=== PATIENT | female | born 1980 | race Caucasian/White ===

== ENCOUNTER 2018-08-19 19:33 | Inpatient (IN) | payer OTHER ==
[2018-08-19] MEDS: ACETAMINOPHEN 500 MG TAB PO (19:46)
[2018-08-19 20:05] LABS: ADD MAN DIFF? NO
[2018-08-19 20:12] LABS: ADD UMIC YES; UR ASCORBIC ACID NEGATIVE (NEGATIVE); UR BACTERIA FEW /HPF (NONE SEEN); UR BILIRUBIN (Dip) NEGATIVE (NEGATIVE); UR BLOOD (Dip) 3+ mg/dL (NEGATIVE); UR CLARITY CLOUDY (CLEAR); UR COLOR YELLOW (YELLOW); UR GLUCOSE (Dip) NEGATIVE (NEGATIVE); UR KETONES (Dip) NEGATIVE (NEGATIVE); UR LEUKOCYTE ESTERASE (Dip) TRACE Leu/ul (NEGATIVE); UR MUCUS MANY /HPF (NONE SEEN); UR NITRITE (Dip) POSITIVE (NEGATIVE); UR NONSQUAMOUS EPITHELIAL CELL 2 /HPF (NONE SEEN); UR RBC > 182 /HPF (0-5); UR SQUAMOUS EPITHELIAL CELL FEW /HPF (FEW); UR TOTAL PROTEIN (Dip) 2+ mg/dl (NEGATIVE); UR UROBILINOGEN (Dip) 1+ mg/dL (NEGATIVE); UR WBC 20 /HPF (0-5)
[2018-08-19] MEDS: KETOROLAC 15 MG INJ IV (20:12)
[2018-08-19 20:13] LABS: WHITE BLOOD COUNT 19.6 10^3/ul (4.8-10.8)
[2018-08-19 20:13] LABS: ABNORMAL IP MESSAGE 1; BASOPHIL # 0.1 10^3/ul (0.0-0.1); BASOPHILS % 0.5 % (0.0-2.0); EOSINOPHILS # 0.1 10^3/ul (0.0-0.5); EOSINOPHILS % 0.7 % (0.0-7.0); HEMATOCRIT 42.2 % (37.0-47.0); HEMOGLOBIN 12.2 g/dl (12.0-16.0); LYMPHOCYTES # 1.1 10^3/ul (0.8-2.9); LYMPHOCYTES % 5.5 % (15.0-51.0); MEAN CORPUSCULAR HEMOGLOBIN 18.2 pg (29.0-33.0); MEAN CORPUSCULAR HGB CONC 28.9 g/dl (32.0-37.0); MEAN CORPUSCULAR VOLUME 63.1 fl (82.0-101.0); MEAN PLATELET VOLUME 8.9 fl (7.4-10.4); MONOCYTE # 1.1 10^3/ul (0.3-0.9); MONOCYTES % 5.5 % (0.0-11.0); NEUTROPHILS % 86.9 % (39.0-77.0); PLATELET COUNT 327 10^3/UL (140-415); RED BLOOD COUNT 6.69 10^6/ul (4.20-5.40); RED CELL DISTRIBUTION WIDTH 21.1 % (11.5-14.5)
[2018-08-19] MEDS: ONDANSETRON 4 MG INJ IV (20:13)
[2018-08-19] MEDS: SODIUM CHLORIDE 0.9% 1L BAG IV* (20:13)
[2018-08-19] MEDS: HYDROmorphONE 2 MG/ML SYG IV (20:13)
[2018-08-19] MEDS: PIPER-TAZO 3.375 GM IV (PMX) 100 ML IVPB (20:13)
[2018-08-19 20:19] LABS: POSITIVE DIFF @See below
[2018-08-19 20:21] LABS: INR 0.95; PROTIME 12.8 Sec (11.9-14.9)
[2018-08-19 20:22] LABS: PARTIAL THROMBOPLASTIN TIME 29.1 Sec (23.0-35.0)
[2018-08-19 20:26] LABS: ALANINE AMINOTRANSFERASE 16 IU/L (13-69); ALBUMIN 4.5 g/dl (3.3-4.9); ALBUMIN/GLOBULIN RATIO 1.18; ALKALINE PHOSPHATASE 131 IU/L (42-121); ANION GAP 13 (5-13); ASPARTATE AMINO TRANSFERASE 20 IU/L (15-46); BILIRUBIN,INDIRECT 0.6 mg/dl (0-1.1); BILIRUBIN,TOTAL 0.6 mg/dl (0.2-1.3); BLOOD UREA NITROGEN 11 mg/dl (7-20); CALCIUM 9.7 mg/dl (8.4-10.2); CARBON DIOXIDE 27 mmol/L (21-31); CHLORIDE 98 mmol/L (97-110); CREATININE 0.84 mg/dl (0.44-1.00); Estimated GFR > 60 mL/min (>60); GLUCOSE 120 mg/dl (70-220); POTASSIUM 4.1 mmol/L (3.5-5.1); SODIUM 138 mmol/L (135-144); TOTAL PROTEIN 8.3 g/dl (6.1-8.1)
[2018-08-19 20:27] LABS: LACTIC ACID 1.6 mmol/L (0.5-2.0)
[2018-08-19 20:37] LABS: TROPONIN-I < 0.012 ng/ml (0.000-0.120)
[2018-08-19] MEDS ORDERED: ONDANSETRON 4 MG INJ IV (23:30)
[2018-08-19] MEDS: HYDROmorphONE 1 MG/ML SYG IV (23:32)
[2018-08-19] MEDS: CLINDAMYCIN 900 MG/D5W (PMX) 50 ML IVPB (23:33)
[2018-08-20] MEDS: SOD CHLORIDE 0.9% IVPB (00:04)
[2018-08-20] MEDS: GENTAMICIN IVPB (00:04)
[2018-08-20] MEDS: AMPICILLIN 2 GM/NS (PMX) 100 ML IVPB (01:21)
[2018-08-20 01:22] LABS: LACTIC ACID 0.6 mmol/L (0.5-2.0)
[2018-08-20] MEDS: DIPHENHYDRAMINE 50 MG INJ IV (02:55)
[2018-08-20] MEDS: ACETAMINOPHEN 325 MG TAB PO (02:56)
[2018-08-20] MEDS ORDERED: morphine 2 MG INJ IV (03:00)
[2018-08-20 05:11] LABS: ADD MAN DIFF? NO
[2018-08-20 05:31] LABS: WHITE BLOOD COUNT 10.8 10^3/ul (4.8-10.8)
[2018-08-20 05:31] LABS: ABNORMAL IP MESSAGE 1; BASOPHILS % 0.4 % (0.0-2.0); EOSINOPHILS # 0.1 10^3/ul (0.0-0.5); EOSINOPHILS % 0.9 % (0.0-7.0); HEMATOCRIT 32.9 % (37.0-47.0); HEMOGLOBIN 9.7 g/dl (12.0-16.0); LYMPHOCYTES # 0.6 10^3/ul (0.8-2.9); LYMPHOCYTES % 5.6 % (15.0-51.0); MEAN CORPUSCULAR HEMOGLOBIN 18.4 pg (29.0-33.0); MEAN CORPUSCULAR HGB CONC 29.5 g/dl (32.0-37.0); MEAN CORPUSCULAR VOLUME 62.3 fl (82.0-101.0); MEAN PLATELET VOLUME 9.7 fl (7.4-10.4); MONOCYTE # 0.7 10^3/ul (0.3-0.9); MONOCYTES % 6.3 % (0.0-11.0); NEUTROPHIL # 9.3 10^3/ul (1.6-7.5); NEUTROPHILS % 86.3 % (39.0-77.0); PLATELET COUNT 255 10^3/UL (140-415); RED BLOOD COUNT 5.28 10^6/ul (4.20-5.40); RED CELL DISTRIBUTION WIDTH 19.7 % (11.5-14.5)
[2018-08-20 05:59] LABS: POSITIVE DIFF @See below
[2018-08-20] MEDS: CLINDAMYCIN 900 MG/D5W (PMX) 50 ML IVPB (06:00)
[2018-08-20 07:54] LABS: ANISOCYTOSIS 3+ (0-0); BAND NEUTROPHILS #M 1.1 10^3/ul (0.0-0.6); BAND NEUTROPHILS % (M) 11 % (0-4); BASOPHIL #M 0.1 10^3/ul (0.0-0.0); BASOPHILS % (M) 1 % (0-2); HYPOCHROMASIA 3+ (0-0); LYMPHOCYTES #M 0.6 10^3/ul (0.8-2.9); LYMPHOCYTES % (M) 6 % (15-51); MICROCYTOSIS 3+ (0-0); MONOCYTE #M 0.3 10^3/ul (0.3-0.9); MONOCYTES % (M) 3 % (0-11); OVALOCYTES 1+ (0-0); PLATELET ESTIMATE NORMAL; POIKILOCYTOSIS 2+ (0-0); POLYCHROMASIA 3+ (0-0); SEG NEUT #M 8.7 10^3/ul (1.6-7.5); SEGMENTED NEUTROPHILS (M) % 79 % (39-77)
[2018-08-20] MEDS ORDERED: GENTAMICIN 80 MG/NS (PMX) 50 ML IVPB (08:00)
[2018-08-20] MEDS ORDERED: AMPICILLIN/SULB 1.5GM/NS (PMX) 50 ML IVPB (12:00)
== END 2018-08-20 05:35 | disposition left against medical advice (07) | DRG 759 ==
LOC: MS1 23:23 → E/R 19:33
DX: N70.93 Salpingitis and oophoritis, unspecified (principal)
CPT/HCPCS: 36415; 71045; 74176; 76830; 76856; 80053; 81001; 81025; 83605; 84484; 84703; 85025; 85610; 85730; 87040; 87070; 87081; 87086; 87210; 87220; 87591; 93005; 96361; 96374; 96375; 99285-25

== ENCOUNTER 2018-08-20 23:31 | Inpatient (IN) | payer OTHER ==
[2018-08-21 00:08] LABS: ADD MAN DIFF? NO
[2018-08-21] MEDS: morphine 4 MG/ML VIAL IV ×3 (00:17→10:23)
[2018-08-21] MEDS: SODIUM CHLORIDE 0.9% 1L BAG IV* (00:17)
[2018-08-21] MEDS: ACETAMINOPHEN 325 MG TAB PO ×2 (00:17→07:26)
[2018-08-21] MEDS: ONDANSETRON 4 MG INJ IV ×2 (00:17→00:50)
[2018-08-21 00:20] LABS: ABNORMAL IP MESSAGE 1; BASOPHIL # 0.1 10^3/ul (0.0-0.1); BASOPHILS % 0.4 % (0.0-2.0); EOSINOPHILS # 0.2 10^3/ul (0.0-0.5); EOSINOPHILS % 1.4 % (0.0-7.0); HEMATOCRIT 35.2 % (37.0-47.0); HEMOGLOBIN 10.1 g/dl (12.0-16.0); LYMPHOCYTES # 1.2 10^3/ul (0.8-2.9); LYMPHOCYTES % 8.6 % (15.0-51.0); MEAN CORPUSCULAR HGB CONC 28.7 g/dl (32.0-37.0); MEAN CORPUSCULAR VOLUME 62.7 fl (82.0-101.0); MEAN PLATELET VOLUME 9.5 fl (7.4-10.4); MONOCYTE # 0.8 10^3/ul (0.3-0.9); MONOCYTES % 5.7 % (0.0-11.0); NEUTROPHIL # 11.8 10^3/ul (1.6-7.5); NEUTROPHILS % 83.2 % (39.0-77.0); PLATELET COUNT 298 10^3/UL (140-415); RED BLOOD COUNT 5.61 10^6/ul (4.20-5.40); RED CELL DISTRIBUTION WIDTH 20.5 % (11.5-14.5)
[2018-08-21 00:20] LABS: WHITE BLOOD COUNT 14.1 10^3/ul (4.8-10.8)
[2018-08-21] MEDS: GENTAMICIN 80 MG/NS (PMX) 50 ML IVPB (00:21)
[2018-08-21 00:29] LABS: LACTIC ACID 1.1 mmol/L (0.5-2.0)
[2018-08-21 00:31] LABS: ALANINE AMINOTRANSFERASE 28 IU/L (13-69); ALBUMIN 3.8 g/dl (3.3-4.9); ALBUMIN/GLOBULIN RATIO 1.15; ALKALINE PHOSPHATASE 129 IU/L (42-121); ANION GAP 14 (5-13); ASPARTATE AMINO TRANSFERASE 37 IU/L (15-46); BILIRUBIN,INDIRECT 0.3 mg/dl (0-1.1); BILIRUBIN,TOTAL 0.3 mg/dl (0.2-1.3); BLOOD UREA NITROGEN 9 mg/dl (7-20); CALCIUM 8.9 mg/dl (8.4-10.2); CARBON DIOXIDE 24 mmol/L (21-31); CHLORIDE 103 mmol/L (97-110); CREATININE 0.74 mg/dl (0.44-1.00); Estimated GFR > 60 mL/min (>60); GLUCOSE 103 mg/dl (70-220); POTASSIUM 3.9 mmol/L (3.5-5.1); SODIUM 141 mmol/L (135-144); TOTAL PROTEIN 7.1 g/dl (6.1-8.1)
[2018-08-21 00:33] LABS: ADD UMIC YES; UR ASCORBIC ACID NEGATIVE (NEGATIVE); UR BILIRUBIN (Dip) NEGATIVE (NEGATIVE); UR BLOOD (Dip) 3+ mg/dL (NEGATIVE); UR CLARITY CLOUDY (CLEAR); UR COLOR AMBER (YELLOW); UR GLUCOSE (Dip) NEGATIVE (NEGATIVE); UR KETONES (Dip) NEGATIVE (NEGATIVE); UR LEUKOCYTE ESTERASE (Dip) 2+ Leu/ul (NEGATIVE); UR MUCUS FEW /HPF (NONE SEEN); UR NITRITE (Dip) NEGATIVE (NEGATIVE); UR RBC > 182 /HPF (0-5); UR SPECIFIC GRAVITY (Dip) 1.026 (1.003-1.030); UR SQUAMOUS EPITHELIAL CELL MODERATE /HPF (FEW); UR TOTAL PROTEIN (Dip) 2+ mg/dl (NEGATIVE); UR UROBILINOGEN (Dip) NEGATIVE (NEGATIVE); UR WBC 59 /HPF (0-5)
[2018-08-21 00:39] LABS: POSITIVE DIFF @See below
[2018-08-21 00:42] LABS: TROPONIN-I 0.053 ng/ml (0.000-0.120)
[2018-08-21] MEDS: AMPICILLIN 2 GM/NS (PMX) 100 ML IVPB (00:55)
[2018-08-21 01:05] LABS: INR 0.99; PROTIME 13.2 Sec (11.9-14.9)
[2018-08-21 01:06] LABS: PARTIAL THROMBOPLASTIN TIME 34.5 Sec (23.0-35.0)
[2018-08-21] MEDS: CLINDAMYCIN 900 MG/D5W (PMX) 50 ML IVPB (02:30)
[2018-08-21] MEDS ORDERED: GENTAMICIN 80 MG/NS (PMX) 50 ML IVPB (10:30)
[2018-08-21] MEDS ORDERED: ONDANSETRON 4 MG INJ IV ×2 (10:30)
[2018-08-21] MEDS: DEXTROSE 5%-LR 1,000 ML IV (11:50)
[2018-08-21] MEDS ORDERED: AMPICILLIN 2 GM/NS (PMX) 100 ML IVPB (12:00)
[2018-08-21] MEDS: HYDROCODONE/APAP (5/325) TAB PO (12:03)
[2018-08-21] MEDS ORDERED: CLINDAMYCIN 900 MG/D5W (PMX) 50 ML IVPB (14:00)
== END 2018-08-21 12:31 | disposition left against medical advice (07) | DRG 757 ==
LOC: E/R 23:31 → MS1 08-21 00:01
DX: N70.93 Salpingitis and oophoritis, unspecified (principal); A41.9 Sepsis, unspecified organism; D64.9 Anemia, unspecified; N73.9 Female pelvic inflammatory disease, unspecified
CPT/HCPCS: 36415; 71045; 80053; 81001; 83605; 84484; 85025; 85610; 85730; 87040; 87086; 93005; 99291-25